=== PATIENT | female | born 1965 | race Caucasian/White ===

== ENCOUNTER 2017-06-30 22:04 | Inpatient (IN) ==
[2017-06-30] MEDS ORDERED: KETOROLAC 30 MG/1 ML VIAL IV STA (23:37)
[2017-06-30 23:54] LABS: Basophils # 0.1 10*3/uL (0.0-0.2); Basophils % 0.6 % (0.0-0.8); Eosinophils # 0.3 10*3/uL (0.0-0.87); Eosinophils % 2.7 % (0.00-10.9); Hematocrit 39.7 VOL% (35.7-47.0); Hemoglobin 13.7 GM/DL (12.0-16.0); Immature Granulocytes % 0.4 %; Immature Granulocytes Absolute 0.04 #; Lymphocytes # 2.3 10*3/uL (1.4-4.0); Lymphocytes % 23.2 % (21.3-54.2); Mean Corpuscular HGB Conc 34.5 GM/DL (32-36); Mean Corpuscular Hemoglobin 30 PG (27-34); Mean Corpuscular Volume 87.1 FL (87-102); Mean Platelet Volume 10.6 FL (9.6-12.0); Monocytes # 0.8 10*3/uL (0.11-0.8); Monocytes % 7.9 % (1.7-12.7); Neutrophils # 6.5 10*3/uL (1.4-7.4); Neutrophils % 65.2 % (38.7-73.9); Platelet Count 246 T/CUMM (130-400); Red Blood Count 4.56 MC/CUMM (3.8-5.5); Red Cell Distribution Width 13.3 % (9.3-17.3)
[2017-07-01] MEDS ORDERED: KETOROLAC 30 MG/1 ML VIAL ONE (00:01)
[2017-07-01 00:15] LABS: Apearance,Urine Slightly Hazy (Clear); Bacteria,Urine Occasional /HPF (Few); Bilirubin,Urine Negative (Negative); Blood, Urine Negative (Negative); Glucose,Urine (UA) Negative (Negative); Ketones,Urine 5 mg/dL (Negative); Mucus,Urine Many /LPF (Occasional); Nitrite,Urine Negative (Negative); Protein,Urine 30 MG/DL; RBC,Urine 20 /HPF (0-4); Renal Epithelial Cells,Urine Occasional /HPF (<1); Squamous Epithelial Cell,Urine Occasional /HPF (0-10); Urine Color Amber (Yellow); Urine Specific Gravity 1.032 (1.001-1.035); WBC,Urine 4 /HPF (0-6)
[2017-07-01 00:23] LABS: Albumin 3.7 G/DL (3.4-5.0); Bilirubin,Total 0.7 MG/DL (0.2-1.0); Calcium 8.9 MG/DL (8.5-10.1); Osmolality,Calculated 276.7 MOS/KG (273-304); Potassium 3.9 MMOL/L (3.5-5.1); Total Protein 7.7 G/DL (6.4-8.3)
[2017-07-01] MEDS ORDERED: MORPHINE 2 MG/1 ML SYRINGE IV STA (02:34)
[2017-07-01] MEDS ORDERED: ONDANSETRON 4 MG/2 ML VIAL IV STA (02:34)
[2017-07-01] MEDS ORDERED: ONDANSETRON 4 MG/2 ML VIAL ONE (02:37)
[2017-07-01] MEDS ORDERED: MORPHINE 2 MG/1 ML SYRINGE ONE ×2 (02:38)
--- NOTE | 2017-07-01 04:27 | Emergency Department Note ---
Arrival - Arrival Chief Complaint: Abdominal / Flank Pain Stated Complaint: stomach pain ED Nursing Triage Note: C/O LLQ abd pain. Onset earlier today. Denies nausea/ vomiting. Last BM-earlier today-normal. Denies urinary s/s. Denies fever. Mode of Arrival: Ambulatory Time Seen by Provider: 06/30/17 23:03 - History of Present Illness HPI Narrative: This is a 51-year-old white female with history of migraine headaches, previous TIA, hyperlipidemia, normal cardiac catheterization in 2016, pulmonary embolus documented in 2009 not on oral anticoagulant, previous appendectomy, cholecystectomy and hysterectomy, chronic neck and back pain followed in the pain management clinic type 2 diabetes, who presents with epigastric and periumbilical abdominal pain with nausea but no vomiting. There is no chest pain shortness of breath nor diaphoresis. There is no history of fever nor chills. Date of Last Menstrual Period: Hysterectomy Allergies/Adverse Reactions: Allergies Allergy/AdvReac Type Severity Reaction Status Date / Time meperidine [From Demerol] Allergy Severe Unknown/Unable Verified 03/18/17 11:24 to obtain ceftriaxone [From Rocephin] Allergy Intermediate RASH Verified 03/18/17 11:24 Cyclobenzaprine Allergy Intermediate Muscle Pain Verified 03/18/17 11:24 [From Flexeril] Mushrooms Allergy Swelling Verified 03/18/17 11:24 of Lip/Tongue/Throat aspirin AdvReac Intermediate Gastrointestinal Verified 03/18/17 11:24 Upset paper tape Allergy Intermediate BLISTER Uncoded 01/28/17 09:15 Home Medications: Home Medications Medication Instructions Recorded Confirmed Type Ciprofloxacin 0.3% Oph Soln 1 drop RIGHT EYE Q4HR 06/30/17 06/30/17 History [Ciloxan 0.3% Oph Soln] Gabapentin 300 mg PO BEDTIME 06/30/17 06/30/17 History Glimepiride 4 mg PO BID 06/30/17 06/30/17 History Hydrocodone/Acetaminophen [[place] 1 each PO QID 06/30/17 06/30/17 History 10-325 Tablet] Metformin HCl 500 mg PO BID 06/30/17 06/30/17 History Phentermine HCl [Adipex-P] 37.5 mg PO DAILY 06/30/17 06/30/17 History Rosuvastatin Calcium [Crestor] 40 mg PO DAILY 06/30/17 06/30/17 History cycloSPORINE OPH EMUL [Restasis] 1 drop BOTH EYES Q12HR 06/30/17 06/30/17 History Review of System - Review of System Constitutional: Absent: fever, night sweats Eyes: Absent: redness, vision change Head/Ears/Nose/Throat: Absent: epistaxis Respiratory: Absent: cough, respiratory distress Cardiovascular: Absent: chest pain, dyspnea on exertion Gastrointestinal: Present: abdominal pain, nausea. Absent: diarrhea Genitourinary female: Absent: dysuria, urgency Musculoskeletal: Absent: joint swelling, lower back pain Skin: Absent: rash Psychiatric: Absent: anxiety, depression Endocrine: Absent: heat intolerance, polydipsia, polyuria Hematological/Lymphatic: Absent: easy bruising Allergic/Immunologic: Absent: urticaria, itchy eyes Medical,Surgical,& Family Hx - Medical History Psychological: History of: Depression Neurology: History of: Migraine, TIA No history of: Seizures HEENT: History of: Eye Problem (Wears glasses), HEENT Problems (Macular degeneration) Endocrine: History of: Diabetes Mellitus (NIDDM), Dyslipidemia Respiratory: History of: Pulmonary Embolism (2009) Genitourinary: History of: Recurring Urinary Tract Infections Gastrointestinal: History of: GERD, GI Problems (Constipation;) Musculoskeletal: History of: Back/Neck Problems (Chronic pain in back and neck) , Musculoskeletal Problems (Arthritis in knees) - Surgical History Cardiac Surgeries: Sugical HX of: Cardiac Catheterization (Dr. Munoz - 2015 workup negative) HEENT Surgeries: Surgical HX of: Tonsilectomy & Adenoidectomy (Tonsils) Abdominal Surgeries: Surgical HX of: Abdominal Surgery, EGD, Hernia Repair Patient denies: Appendectomy, Cholecystectomy Reproductive Surgeries: Surgical HX of;: Section (x3), Gynecologic Surgery, Hysterectomy Patient denies;: Genitourinary Surgery Orthopedic Surgeries: Surgical HX of;: Orthopedic Surgery (Injections in back, neck and bilateral knees) - Family History Family History: Reports;: Family Heart Disease (Father), Family Hypertension ( Mother), Family Stroke (Father) - Social History Smoking Status: Never smoker Frequency of Alcohol Use: None Type of Drug Use: None Exam Vital Signs: Vital Signs Temperature 96.8 F L 06/30/17 22:20 Pulse Rate 87 06/30/17 22:20 Respiratory Rate 20 06/30/17 22:20 Blood Pressure 150/95 06/30/17 22:20 O2 Sat by Pulse Oximetry 100 06/30/17 22:13 - General General appearance: alert - Head Head exam: Present: atraumatic, normocephalic - Eye Eye exam: Present: PERRL, EOMI - ENT ENT exam: Present: normal exam, normal oropharynx - Neck Neck exam: Present: normal inspection, full ROM - Chest Chest inspection: Present: normal inspection, symmetric chest wall rise - Respiratory Respiratory exam: Present: normal lung sounds bilaterally - Cardiovascular Cardiovascular exam: Present: regular rate, normal rhythm - Abdominal Exam Abdominal exam: Present: soft, normal bowel sounds - Extremities Exam Extremities exam: Present: normal inspection, full ROM - Back Exam Back exam: Present: normal inspection, full ROM - Neurological Exam Neurological exam: Present: alert, oriented X3, CN II-XII intact - Psychiatric Psychiatric exam: Present: normal affect, normal mood - Skin Skin exam: Present: warm, dry Course Course Narrative: The patient's symptoms have not completely resolved. The laboratory tests are normal. The patient had a normal cardiac catheterization in 2015. The CT scan of the abdomen and pelvis revealed ileus versus early small bowel obstruction. Because of the patient's persistent pain and the risk for possible adhesions seems reasonable the patient should be admitted to the hospital for observation and surgical consultation. The case was discussed with Dr. Barrera the on-call surgeon and the patient will be admitted to the hospitalist service with surgical consultation. Results - Labs CBC & BMP: 06/30/17 23:20 06/30/17 23:20 Disposition Clinical Impression: Abdominal pain Disposition: Still a Patient Additional Instructions: The patient's symptoms have not completely resolved. The laboratory tests are normal. The patient had a normal cardiac catheterization in 2015. The CT scan of the abdomen and pelvis revealed ileus versus early small bowel obstruction. Because of the patient's persistent pain and the risk for possible adhesions seems reasonable the patient should be admitted to the hospital for observation and surgical consultation. The case was discussed with Dr. Barrera the on-call surgeon and the patient will be admitted to the hospitalist service with surgical consultation
[2017-07-01] MEDS ORDERED: DOCUSATE SODIUM 100 MG CAPSULE PO PRN (04:40)
[2017-07-01] MEDS ORDERED: ONDANSETRON 4 MG/2 ML VIAL IV PRN (04:40)
[2017-07-01] MEDS ORDERED: ACETAMINOPHEN 325 MG TABLET PO PRN (04:40)
--- NOTE | 2017-07-01 05:03 | Hospitalist History & Physical ---
Assessment and Plan - Time spent with patient Time spent with patient: Greater than 30 minutes (1) Ileus Status: Acute Assessment and plan: Admit to hospitalist services. Consult surgery; CT preliminary report reads, "1. Prominent and mildly dilated proximal loops of small bowel with fluid-level. Differential consideration includes ileus, enteritis, developing small bowel obstruction. 2. Mild subcutaneous fat stranding in anterior abdominal wall at midline, questionable infections or inflammatory process vs scarring..." Gentle hydration with NS at 60 ml/hr. Pain and Nausea control PRN. Reglan 10 mg IV Q6H. Clear liquid diet. Repeat Labs in am. Current Visit: Yes (2) Enteritis Status: Acute Assessment and plan: Patient denies N/V/D. As above. Current Visit: Yes (3) Intractable abdominal pain Status: Acute Assessment and plan: As above. Current Visit: Yes (4) Diabetes Status: Chronic Assessment and plan: Continue home medications. Accuchecks and SSI ACHS. Clear liquid diet for now. Obtain A1c. Current Visit: Yes (5) DVT prophylaxis Status: Acute Assessment and plan: Lovenox 40 mg SQ daily. Current Visit: Yes History of Present Illness Chief complaint: Abdominal pain History of present illness: Ms. Sosa is a 51 year old female with a past medical history of NIDDM, GERD, hyperlipedemia, depression, chronic neck/back pain, macular degeneration, small bowel obstruction, and pulmonary embolism who presented to the ED today with complaints of generalized abdominal pain x 1 day. She reports that at first pain was light and intermittent but gradually worsened throughout the day until she to a [place] 10 mg for it around 15:00. By 21:00, the pain had not improved, and a friend brought her to the ED. She denies any fever, nausea, vomiting, or diarrhea. A CT of her abdomen showed enteritis vs. ileus vs. developing small bowel obstruction, as per ERP report. Her labs were completely unremarkable. Currently, she is lying in bed with continued complaints of pain despite being given morphine. She reports a surgical history of cholecystectomy, hernia repair x 10, appendectomy, x 3, hysterectomy, and tonsillectomy. Hospitalist services were consulted, and the patient will be admitted for further evaluation and treatment. Home medications were reviewed and reconciled. This patient is a full code. Home Medications Medication Instructions Recorded Confirmed Type Ciprofloxacin 0.3% Oph Soln 1 drop RIGHT EYE Q4HR 06/30/17 06/30/17 History [Ciloxan 0.3% Oph Soln] Gabapentin 300 mg PO BEDTIME 06/30/17 06/30/17 History Glimepiride 4 mg PO BID 06/30/17 06/30/17 History Hydrocodone/Acetaminophen [[place] 1 each PO QID 06/30/17 06/30/17 History 10-325 Tablet] Metformin HCl 500 mg PO BID 06/30/17 06/30/17 History Phentermine HCl [Adipex-P] 37.5 mg PO DAILY 06/30/17 06/30/17 History Rosuvastatin Calcium [Crestor] 40 mg PO DAILY 06/30/17 06/30/17 History cycloSPORINE OPH EMUL [Restasis] 1 drop BOTH EYES Q12HR 06/30/17 06/30/17 History Allergies Allergy/AdvReac Type Severity Reaction Status Date / Time meperidine [From Demerol] Allergy Severe Unknown/Unable Verified 03/18/17 11:24 to obtain ceftriaxone [From Rocephin] Allergy Intermediate RASH Verified 03/18/17 11:24 Cyclobenzaprine Allergy Intermediate Muscle Pain Verified 03/18/17 11:24 [From Flexeril] Mushrooms Allergy Swelling Verified 03/18/17 11:24 of Lip/Tongue/Throat aspirin AdvReac Intermediate Gastrointestinal Verified 03/18/17 11:24 Upset paper tape Allergy Intermediate BLISTER Uncoded 01/28/17 09:15 Medical,Surgical,& Family Hx - Medical History Psychological: History of: Depression Neurology: History of: Migraine, TIA HEENT: History of: Eye Problem (Wears glasses), HEENT Problems (Macular degeneration) Endocrine: History of: Diabetes Mellitus (NIDDM), Dyslipidemia Respiratory: History of: Pulmonary Embolism (2009) Genitourinary: History of: Recurring Urinary Tract Infections Gastrointestinal: History of: GERD, GI Problems (Constipation) Musculoskeletal: History of: Back/Neck Problems (Chronic pain in back and neck) , Musculoskeletal Problems (Arthritis in knees) - Surgical History Cardiac Surgeries: Sugical HX of: Cardiac Catheterization (Dr. Munoz - 2015 workup negative) HEENT Surgeries: Surgical HX of: Tonsilectomy & Adenoidectomy (Tonsils) Abdominal Surgeries: Surgical HX of: Abdominal Surgery, Appendectomy, Cholecystectomy, EGD, Hernia Repair (x 10) Reproductive Surgeries: Surgical HX of;: Section (x3), Gynecologic Surgery, Hysterectomy Orthopedic Surgeries: Surgical HX of;: Orthopedic Surgery (Injections in back, neck and bilateral knees) - Family History Family History: Reports;: Family Heart Disease (Father), Family Hypertension ( Mother), Family Stroke (Father) - Social History Smoking Status: Never smoker Frequency of Alcohol Use: None Type of Drug Use: None Marital Status: Lives With:: Spouse Functional capacity: independent ambulation 12 point system: reviewed and no additional remarkable complaints except as stated - Constitutional Constitutional: Absent: chills, fever(s), malaise, weakness - EENT Eyes: Absent: blurry vision, diplopia, loss of vision Ears: Absent: decreased hearing, ear discharge, ear pain Nose, mouth and throat: Absent: headache(s), nasal congestion, sore throat - Cardiovascular Cardiovascular: Absent: chest pain at rest, chest pain with activity, dyspnea, edema, orthopnea, palpitations - Respiratory Respiratory: Absent: cough, dyspnea, wheezing - Gastrointestinal Gastrointestinal: Present: abdominal pain. Absent: constipation, diarrhea, nausea, vomiting - Genitourinary Genitourinary: Absent: dysuria, flank pain, urinary frequency - Musculoskeletal Musculoskeletal: Present: back pain. Absent: arthralgias, joint swelling, muscle weakness, myalgias - Neurological Neurological: Absent: confusion, dizziness, numbness, paresthesias, syncope - Psychiatric Psychiatric: Present: depression. Absent: anxiety - Endocrine Endocrine: Absent: cold intolerance, polydipsia, polyphagia, polyuria - Hematologic/Lymphatic Hematologic/Lymphatic: Absent: easy bleeding, easy bruising Exam - Constitutional Vitals: Period Temp Pulse Resp BP Sys/[place] Pulse Ox Last 24 Hr 96.8 F-96.8 F 87-87 20-20 150-150/95-95 100 Exam: Constitutional System: Afebrile. Awake, alert and oriented x 3. No distress. No tremulousness. Head: Normocephalic, atraumatic. Ears, Nose and Throat System: No pain or tenderness. No epistaxis or discharge Eyes System: Pupils equal, round, and reactive. Extraocular muscles intact. Neck: Supple, without adenopathy, No jugular venous distention. No thyromegaly, neck mass, or prior surgery apparent. Respiratory System: Chest clear to auscultation. Cardiovascular System: Heart with regular rate and rhythm. No murmur. GI System: Abdomen soft, LUQ, epigastric, and periumbilical tenderness noted. Normo active bowel sounds present. Musculoskeletal System: Limbs with no pedal edema. Full distal pulses. Normal capillary refill. Neurological System: No discernable sensory deficit. No aphasia Psychiatric System: Conversation is rational Results - Labs CBC & BMP: 06/30/17 23:20 06/30/17 23:20 Lab Results: I have reviewed the past 24 hour labs - Diagnostic Findings Procedure: CT Abdomen and Pelvis: other (Report pending. )
[2017-07-01] MEDS ORDERED: GLUCAGON 1 MG VIAL IM PRN (06:01)
[2017-07-01] MEDS ORDERED: DEXTROSE 50% 25 GM/50 ML SYRINGE IV PRN (06:01)
[2017-07-01] MEDS: METOCLOPRAMIDE 10 MG/2 ML VIAL IV SCH ×3 (06:42→19:03)
[2017-07-01] MEDS: HYDROmorphone 2 MG/1 ML VIAL IV PRN ×2 (06:42→21:31)
[2017-07-01] MEDS: SODIUM CHLORIDE 0.9% 1,000 ML IV SCH ×2 (06:45→20:54)
[2017-07-01] MEDS: INSULIN LISPRO 100 UNIT/ML SUBCUT SCH ×4 (07:59→20:41)
--- NOTE | 2017-07-01 08:14 | CT Report ---
CT abdomen pelvis Indication: Abdominal pain, left lower quadrant Comparison: 28 January 2017 Technique: Axial CT imaging of the abdomen and pelvis is performed with intravenous and oral contrast. Contrast dose is 100 cc of Omnipaque 350. Findings: Cardiac and lung bases are within normal limits CT abdomen: The liver spleen pancreas and adrenal glands are normal in size and enhancement. No evidence of focal lesion is demonstrated in these solid organs. Gallbladder has been removed. Small amount of stranding is seen in the anterior abdominal wall near midline. Few slightly prominent small bowel loops are present near this area. Similar findings were present on the previous study. Kidneys are normal in size and enhancement. No evidence of hydronephrosis or nephrolithiasis is seen. The bowel caliber is normal and no wall thickening or adjacent inflammatory change is seen. No evidence of free fluid or free air is present. CT pelvis: The pelvic bowel appears within normal limits. Bladder shows no evidence of abnormality. The uterus and ovaries are not identified. Impression: No definite evidence of acute process demonstrated. Small amount of midline abdominal wall stranding and thickening similar to previous exam. Few slightly prominent small bowel loops also similar to previous study could indicate mild ileus. This CT exam was performed using one or more the following dose reduction techniques: Automated exposure control, adjustment of the MA and/or KV according to patient size, or use of iterative reconstruction technique. PROCEDURE INTERPRETED AT [facility] DEPARTMENT OF RADIOLOGY Final Report Signed by: Dr. Toni Savage
[2017-07-01] MEDS ORDERED: PHENTERMINE HCL 37.5 MG PO SCH (09:00)
[2017-07-01] MEDS: ROSUVASTATIN 20 MG TABLET PO SCH (09:00)
[2017-07-01] MEDS: metFORMIN 500 MG TABLET PO SCH ×2 (09:01→20:53)
[2017-07-01] MEDS: GLIMEPIRIDE 4 MG TABLET PO SCH ×2 (09:01→20:53)
[2017-07-01] MEDS: PANTOPRAZOLE 40 MG TABLET PO SCH (09:01)
[2017-07-01] MEDS: ENOXAPARIN 40 MG/0.4 ML SYRINGE SUBCUT SCH (09:02)
[2017-07-01] MEDS: CIPROFLOXACIN 0.3% OPH SOLN 2.5 ML BOTTLE RIGHT EYE SCH ×4 (09:39→20:53)
[2017-07-01] MEDS: cycloSPORINE OPH EMUL 1 VIAL BOTH EYES SCH ×2 (09:40→20:53)
--- NOTE | 2017-07-01 12:03 | General Surg History&Physical ---
Assessment and Plan (1) Abdominal pain Status: Acute Assessment and plan: I do not see any evidence of any surgical pathology in this patient. Please call back with any further questions. Current Visit: Yes History of Present Illness Chief complaint: Abdominal pain History of present illness: Ms. Sosa is a 51 year old female admitted with abdominal pain. She is having bowel movements and passing gas. She denies any blood in her stool. Home Medications Medication Instructions Recorded Confirmed Type Ciprofloxacin 0.3% Oph Soln 1 drop RIGHT EYE Q4HR 06/30/17 07/01/17 History [Ciloxan 0.3% Oph Soln] Gabapentin 300 mg PO BEDTIME 06/30/17 07/01/17 History Glimepiride 4 mg PO BID 06/30/17 07/01/17 History Hydrocodone/Acetaminophen [[place] 1 each PO QID 06/30/17 07/01/17 History 10-325 Tablet] Metformin HCl 500 mg PO BID 06/30/17 07/01/17 History Phentermine HCl [Adipex-P] 37.5 mg PO DAILY 06/30/17 07/01/17 History Rosuvastatin Calcium [Crestor] 40 mg PO DAILY 06/30/17 07/01/17 History cycloSPORINE OPH EMUL [Restasis] 1 drop BOTH EYES Q12HR 06/30/17 07/01/17 History Allergies Allergy/AdvReac Type Severity Reaction Status Date / Time meperidine [From Demerol] Allergy Severe Unknown/Unable Verified 03/18/17 11:24 to obtain ceftriaxone [From Rocephin] Allergy Intermediate RASH Verified 03/18/17 11:24 Cyclobenzaprine Allergy Intermediate Muscle Pain Verified 03/18/17 11:24 [From Flexeril] Mushrooms Allergy Swelling Verified 03/18/17 11:24 of Lip/Tongue/Throat aspirin AdvReac Intermediate Gastrointestinal Verified 03/18/17 11:24 Upset paper tape Allergy Intermediate BLISTER Uncoded 01/28/17 09:15 Medical,Surgical,& Family Hx - Medical History Psychological: History of: Depression Neurology: History of: Migraine, TIA No history of: Seizures HEENT: History of: Eye Problem (Wears glasses), HEENT Problems (Macular degeneration) Endocrine: History of: Diabetes Mellitus (NIDDM), Dyslipidemia Respiratory: History of: Pulmonary Embolism (2009) Genitourinary: History of: Recurring Urinary Tract Infections Gastrointestinal: History of: GERD, GI Problems (Constipation) Musculoskeletal: History of: Back/Neck Problems (Chronic pain in back and neck) , Musculoskeletal Problems (Arthritis in knees) - Surgical History Cardiac Surgeries: Sugical HX of: Cardiac Catheterization (Dr. Munoz - 2016 workup negative) HEENT Surgeries: Surgical HX of: Tonsilectomy & Adenoidectomy (Tonsils) Abdominal Surgeries: Surgical HX of: Abdominal Surgery, Appendectomy, Cholecystectomy, EGD, Hernia Repair (x 10) Reproductive Surgeries: Surgical HX of;: Section (x3), Gynecologic Surgery, Hysterectomy Patient denies;: Genitourinary Surgery Orthopedic Surgeries: Surgical HX of;: Orthopedic Surgery (Injections in back, neck and bilateral knees) - Family History Family History: Reports;: Family Heart Disease (Father), Family Hypertension ( Mother), Family Stroke (Father) - Social History Smoking Status: Never smoker Frequency of Alcohol Use: None Type of Drug Use: None Exam - Constitutional Vitals: Period Temp Pulse Resp BP Sys/[place] Pulse Ox Last 24 Hr 96.8 F-97.7 F 61-87 18-20 95-150/56-95 90-100 General appearance: no acute distress, morbidly obese - Head Head exam: Present: normal inspection, normocephalic - Eye Eye exam: Present: EOMI Pupils: Present: [place] - ENT ENT exam: Present: normal exam Mouth exam: Present: normal external inspection, normal voice - Neck Neck exam: Present: normal inspection, trachea midline - Respiratory Respiratory exam: Present: clear to auscultation bilaterally. Absent: accessory muscle use, chest wall tenderness - Cardiovascular Cardiovascular exam: Present: RRR. Absent: systolic murmur, tachycardia - GI/Abdominal GI/Abdominal exam: Present: normal bowel sounds, tenderness (Nonspecific minimal abdominal tenderness), soft. Absent: rebound - Extremities Exam Extremities exam: Present: normal inspection, normal capillary refill - Back Exam Back exam: Present: normal inspection - Neurological Exam Neurological exam: Present: alert, oriented X3 Speech: Present: normal - Skin Skin exam: Present: normal color, warm - Constitutional Constitutional: Present: as per HPI - EENT Nose, mouth and throat: Present: as per HPI - Cardiovascular Cardiovascular: Present: as per HPI - Respiratory Respiratory: Present: as per HPI - Gastrointestinal Gastrointestinal: Present: as per HPI - Genitourinary Genitourinary: Present: as per HPI - Musculoskeletal Musculoskeletal: Present: as per HPI - Neurological Neurological: Present: as per HPI - Endocrine Endocrine: Present: as per HPI Hematologic/Lymphatic: Present: as per HPI Results - Labs CBC & BMP: 06/30/17 23:20 06/30/17 23:20 - Diagnostic Findings Procedure: CT Abdomen and Pelvis: image reviewed by me, report reviewed by me
--- NOTE | 2017-07-01 13:54 | Event Note ---
Ms Sosa admitted this morning at 4:54 a.m. 07/01/17: she is resting comfortably in bed, easily awakened. She verbalize feeling a little better at time of exam. No acute distress. BS positive in all 4 quadrants. Abdomen soft. Was awaiting surgery consult for further evaluation and assistance. Noted: surgery consult as follow: Dr kelly seen patient; and feels patient is passing gas and having bowel movements and will not need surgical intervention at this time but can re-consult if something acute occurs or changes.
[2017-07-02] MEDS: CIPROFLOXACIN 0.3% OPH SOLN 2.5 ML BOTTLE RIGHT EYE SCH ×5 (00:02→17:40)
[2017-07-02] MEDS: METOCLOPRAMIDE 10 MG/2 ML VIAL IV SCH ×3 (00:02→12:30)
[2017-07-02 04:54] LABS: Basophils % 0.4 % (0.0-0.8); Eosinophils # 0.3 10*3/uL (0.0-0.87); Eosinophils % 3.8 % (0.00-10.9); Hematocrit 35.6 VOL% (35.7-47.0); Hemoglobin 11.8 GM/DL (12.0-16.0); Immature Granulocytes % 0.1 %; Immature Granulocytes Absolute 0.01 #; Lymphocytes # 2.4 10*3/uL (1.4-4.0); Lymphocytes % 31.3 % (21.3-54.2); Mean Corpuscular HGB Conc 33.1 GM/DL (32-36); Mean Corpuscular Hemoglobin 29 PG (27-34); Mean Corpuscular Volume 88.1 FL (87-102); Mean Platelet Volume 11.1 FL (9.6-12.0); Monocytes # 0.8 10*3/uL (0.11-0.8); Neutrophils # 4.1 10*3/uL (1.4-7.4); Neutrophils % 54.4 % (38.7-73.9); Platelet Count 220 T/CUMM (130-400); Red Blood Count 4.04 MC/CUMM (3.8-5.5); Red Cell Distribution Width 13.6 % (9.3-17.3); White Blood Count 7.6 T/CUMM (4-12)
[2017-07-02 05:27] LABS: Osmolality,Calculated 281.1 MOS/KG (273-304); Potassium 3.7 MMOL/L (3.5-5.1)
[2017-07-02] MEDS: INSULIN LISPRO 100 UNIT/ML SUBCUT SCH ×3 (08:41→17:39)
[2017-07-02] MEDS: ROSUVASTATIN 20 MG TABLET PO SCH (09:22)
[2017-07-02] MEDS: GLIMEPIRIDE 4 MG TABLET PO SCH (09:23)
[2017-07-02] MEDS: metFORMIN 500 MG TABLET PO SCH (09:23)
[2017-07-02] MEDS: PANTOPRAZOLE 40 MG TABLET PO SCH (09:24)
[2017-07-02] MEDS: cycloSPORINE OPH EMUL 1 VIAL BOTH EYES SCH (09:25)
[2017-07-02] MEDS: ENOXAPARIN 40 MG/0.4 ML SYRINGE SUBCUT SCH (09:26)
--- NOTE | 2017-07-02 11:31 | Discharge Summary ---
<Oksana Lyle - Last Filed: 07/02/17 11:29> Hospital Course - Hospital Course Hospital Course: 51-year-old female with history of diabetes, GERD, hyperlipidemia, depression, chronic neck/back pain, macular degeneration, small bowel obstruction, and pulmonary embolism admitted by the hospitalist service on 07/01/2017 with abdominal pain. Initial CT scan showed ileus versus early small bowel obstruction. She was initially made n.p.o. and she started passing gas and having bowel movements. Surgery was consulted and no surgical intervention was needed. She did well on a clear liquid diet today. Her follow-up CT just showed some small amount of midline abdominal wall stranding and thickening with few slightly prominent small bowel loops. This is improvement from previous. We will advance her to a diabetic diet and if she can tolerate this without nausea or vomiting, she can be discharged home. She is to follow-up with her primary care physician in 2-4 weeks for evaluation. Complete discharge instructions were given. Care coordination, chart review, completed discharge paperwork took approximately 32 minutes. - Time spent with patient Time with patient DS: Greater than 30 minutes Diagnosis - Discharge Diagnosis (1) Abdominal pain Status: Resolved (2) Intractable abdominal pain Status: Resolved (3) Diabetes Status: Chronic (4) Ileus Status: Resolved (5) Enteritis Status: Resolved Specialty Discharge - Follow Up or Referrals Follow up with: your,pcp [Other] - 2 Weeks Discharge Plan - Discharge Data Disposition: Disch To Home/Self Care Condition at Discharge: Stable Discharge Diet: diabetic diet Activity: resume usual activities as tolerated Contact your physician if you experience:: Nausea/Vomiting - Discharge Medications Continue cycloSPORINE OPH EMUL [Restasis] 1 drop BOTH EYES Q12HR Phentermine HCl [Adipex-P] 37.5 mg PO DAILY Metformin HCl 500 mg PO BID Hydrocodone/Acetaminophen [[place] 10-325 Tablet] 1 each PO QID Rosuvastatin Calcium [Crestor] 40 mg PO DAILY Glimepiride 4 mg PO BID Ciprofloxacin 0.3% Oph Soln [Ciloxan 0.3% Oph Soln] 1 drop RIGHT EYE Q4HR Gabapentin 300 mg PO BEDTIME - Follow Up or Referral Follow Up: your,pcp [Other] - 2 Weeks - Forms/Instructions Exam - Constitutional Vitals: Period Temp Pulse Resp BP Sys/[place] Pulse Ox Last 24 Hr 96.9 F-97.8 F 60-70 18-20 86-159/53-87 93-96 Exam: 51-year-old female, no acute distress, alert and oriented Chest clear CV regular rate and rhythm Abdomen soft and nontender Extremities no edema Discharge Results Labs on day of discharge: Labs from last 24 hours 07/02/17 07/02/17 07/02/17 08:39 03:35 03:35 WBC 7.6 RBC 4.04 Hgb 11.8 L Hct 35.6 L MCV 88.1 MCH 29 MCHC 33.1 RDW 13.6 Plt Count 220 MPV 11.1 Neut % (Auto) 54.4 Lymph % (Auto) 31.3 [place] % (Auto) 10.0 Eos % (Auto) 3.8 Baso % (Auto) 0.4 Neut # (Auto) 4.1 Lymph # (Auto) 2.4 [place] # (Auto) 0.8 Eos # (Auto) 0.3 Baso # (Auto) 0.0 Immature Gran % 0.1 Nucleated RBC % 0.0 Immature Gran # 0.01 Nucleated RBCs # 0.00 Immature Plt Fraction 0.0 Sodium 142 Potassium 3.7 Chloride 108 H Carbon Dioxide 26 Anion Gap 11.7 BUN 12 Creatinine 0.60 GFR Calculation 134 BUN/Creatinine Ratio 20.00 Glucose 74 POC Glucose 133 H Calculated Osmolality 281.1 Calcium 8.0 L 07/01/17 07/01/17 20:40 16:25 WBC RBC Hgb Hct MCV MCH MCHC RDW Plt Count MPV Neut % (Auto) Lymph % (Auto) [place] % (Auto) Eos % (Auto) Baso % (Auto) Neut # (Auto) Lymph # (Auto) [place] # (Auto) Eos # (Auto) Baso # (Auto) Immature Gran % Nucleated RBC % Immature Gran # Nucleated RBCs # Immature Plt Fraction Sodium Potassium Chloride Carbon Dioxide Anion Gap BUN Creatinine GFR Calculation BUN/Creatinine Ratio Glucose POC Glucose 117 H 117 H Calculated Osmolality Calcium DS: Provider Date of admission: 07/01/17 04:41 Primary care physician: Bettye Anderson MD Attending physician on admission: Pardeep Newby MD Consults: 07/01/17 04:40 Consult to Physician [CONS] Routine Comment: Abominal pain; Ileus vs SBO Consulting Provider: Lance Lawson Consulting Provider Notified: Yes When should Consulting Provider be notified: Now Consult to Specialist Group: Surgery When should Consulting Provider be notified: Now Person Notified: KIRSTEN Date Notified: 07/01/17 Time Notified: 09:32 Consult Notification Comment: DR LAWSON SAW PATIENT EARLIER THIS AM Discharging clinician: NIESHA Mahmood Expected date of discharge: 07/02/17 <Duyen Colby - Last Filed: 07/02/17 12:04> Hospital Course - Time spent with patient Time with patient DS: Greater than 30 minutes
[2017-07-02] MEDS: SODIUM CHLORIDE 0.9% 1,000 ML IV SCH (17:39)
[2017-07-02 17:44] VITALS: BP 153/65
[2017-07-02] MEDS ORDERED: GABAPENTIN 300 MG CAPSULE PO SCH (21:00)
== END 2017-07-02 16:10 | disposition home or self-care (01) | DRG 247 ==
LOC: N.ED 22:04 → SUATTDRO 07-01 04:40 → N.EDINP 07-01 04:40 → N.4E 07-01 05:14
PROVIDERS: ADMIT Family Medicine; ATTEND Internal Medicine